=== PATIENT | male | born 2000 | race Caucasian/White ===

== ENCOUNTER 2019-05-14 22:58 | Emergency (ER) | payer SELFPAY ==
[~2019-05-14] VITALS: Ht 180.3 cm; Wt 84.8 kg
[~2019-05-14 22:58] MED LIST: AMOX1TAB10 PO; IBUP-1542 PO
[2019-05-14 23:24] VITALS: BP 119/60; PULSE 80; RESP 18; Ht 180.3 cm; Wt 84.8 kg
== END 2019-05-15 02:11 | disposition home or self-care (01) ==
LOC: FTE 22:58
DX: K05.30 Chronic periodontitis, unspecified (principal); F17.210 Nicotine dependence, cigarettes, uncomplicated
CPT/HCPCS: 99283